=== PATIENT | male | born 1955 | race African-American/Black ===

== ENCOUNTER 2016-11-15 17:03 | Emergency (ER) | payer OTHER ==
[~2016-11-15] VITALS: Ht 172.7 cm; Wt 100.0 kg
[~2016-11-15 17:03] MED LIST: AMLO10TA55 PO; ASPI-556 PO; DOXA1TAB2 PO; FLUNISOLIDE NS; ISOS20TA9 PO; LISI40TA4 PO; LORA10TA47 PO; METO25TA6 PO; MONT10TA24 PO; NIAC500C3 PO; NITR0.4T10 SL; POTA8TAB4 PO; SIMV40TA5 PO; TRAM50TA4 PO
[2016-11-15] MEDS ORDERED: MAGOX PO (17:14)
[2016-11-15] MEDS ORDERED: CHLO25TA16 PO (17:14)
[2016-11-15] MEDS ORDERED: FLUN25H NASAL (17:41)
[2016-11-15] MEDS ORDERED: SIMV20 PO (17:41)
[2016-11-15] MEDS ORDERED: HYDROCODONE/ACETAMINOPHEN 5-325 MG TABLET PO ONE (17:45)
[2016-11-15] MEDS ORDERED: LIDOCAINE HCL BUFFERED 1% 20 ML VIAL INJ ONE (17:45)
[2016-11-15] MEDS ORDERED: LIDOCAINE HCL/PF 1% 2 ML VIAL IM ONE (17:45)
[2016-11-15] MEDS ORDERED: HydrOXYzine HCL 25 MG TABLET PO ONE (17:45)
[2016-11-15] MEDS ORDERED: CefTRIAXone SODIUM 1 GM/VIAL IM ONE (17:45)
[2016-11-15 18:31] VITALS: BP 134/85
== END 2016-11-15 18:58 | disposition home or self-care (01) ==
LOC: EMS 17:04
DX: L03.012 Cellulitis of left finger (principal); Z87.891 Personal history of nicotine dependence; I10 Essential (primary) hypertension; E78.00 Pure hypercholesterolemia, unspecified; Z88.0 Allergy status to penicillin; Z79.82 Long term (current) use of aspirin
CPT/HCPCS: 10160; 96372; 99284; J0696; J3490 ×2

== ENCOUNTER 2020-11-20 11:53 | Emergency (ER) | payer MEDICARE, OTHER ==
[~2020-11-20] VITALS: Ht 172.7 cm; Wt 120.9 kg
[~2020-11-20 11:53] MED LIST changes: +CHLO25TA3 PO; -FLUNISOLIDE NS; +FLUNNS NASAL; -LISI40TA4 PO; +LISI40TA9 PO; +LORA-550 PO; -LORA10TA47 PO; +MAGN400T7 PO; -MONT10TA24 PO; +MONT10TA32 PO; -NIAC500C3 PO; +SIMV-260 PO; -SIMV40TA5 PO
[2020-11-20] MEDS ORDERED: KETOROLAC TROMETHAMINE 30 MG/ML VIAL IM ONE (13:30)
[2020-11-20] MEDS ORDERED: AmLODIPine BESYLATE 5 MG TABLET PO ONE (13:30)
[2020-11-20] MEDS ORDERED: LISINOPRIL 10 MG TABLET PO ONE (13:30)
[2020-11-20 14:10] VITALS: BP 171/93
== END 2020-11-20 14:39 | disposition home or self-care (01) ==
LOC: EMS 11:59
DX: S46.911A Strain of unspecified muscle, fascia and tendon at shoulder and upper arm level, right arm, initial encounter (principal); I11.9 Hypertensive heart disease without heart failure; F17.210 Nicotine dependence, cigarettes, uncomplicated; E78.00 Pure hypercholesterolemia, unspecified; Z88.0 Allergy status to penicillin; Z79.899 Other long term (current) drug therapy; Z79.82 Long term (current) use of aspirin; X50.0XXA Overexertion from strenuous movement or load, initial encounter; Y93.89 Activity, other specified; Y92.89 Other specified places as the place of occurrence of the external cause; Y99.8 Other external cause status
CPT/HCPCS: 96372; 99283; J1885

== ENCOUNTER 2022-09-02 15:23 | Inpatient (IN) | payer OTHER ==
[~2022-09-02] VITALS: Ht 172.7 cm; Wt 108.0 kg
[~2022-09-02 15:23] MED LIST changes: +LORA-1370 PO; -LORA-550 PO; +MONT-40 PO; -MONT10TA32 PO; -POTA8TAB4 PO; +SLOWK8 PO
[2022-09-02] MEDS ORDERED: ACETAMINOPHEN 500 MG TABLET PO ONE (20:30)
[2022-09-02] MEDS ORDERED: IBUPROFEN 600 MG TABLET PO ONE (20:30)
[2022-09-02 20:44] LABS: BASOPHILS % (AUTO) 0.7 % (0.0-2.0); EOSINOPHILS % (AUTO) 1.4 % (1.0-6.0); HEMATOCRIT 43.4 % (41-53); LYMPHOCYTES # (AUTO) 1.2 K/uL (1.0-4.8); LYMPHOCYTES % (AUTO) 25.6 % (22.0-44.0); MEAN CORPUSCULAR HEMOGLOBIN 28.1 pg (26.0-34.0); MEAN CORPUSCULAR HGB CONC 32.2 G/dL (31.0-37.0); MEAN CORPUSCULAR VOLUME 87 fL (80-100); MONOCYTES # (AUTO) 0.4 K/uL (0.1-1.0); MONOCYTES % (AUTO) 9.7 % (2.0-9.0); NEUTROPHILS # (AUTO) 2.8 K/uL (1.8-7.7); NEUTROPHILS % (AUTO) 62.6 % (40.0-70.0); PLATELET COUNT (AUTO) 263 K/uL (150-450); RED BLOOD CELL COUNT(AUTO) 4.97 MIL/uL (4.50-5.90); RED CELL DISTRIBUTION WIDTH 15.1 % (11.5-14.5)
[2022-09-02 20:59] LABS: CALCIUM, TOTAL 8.9 mg/dL (8.8-10.5); CREATININE 2.5 mg/dL (0.60-1.30); POTASSIUM 3.7 mmol/L (3.5-5.1)
[2022-09-02 21:07] LABS: ALBUMIN 3.8 g/dL (3.4-5.0); BILIRUBIN,TOTAL 0.4 mg/dL (0.1-1.0); TOTAL PROTEIN, SERUM 7.9 g/dL (6.4-8.2)
[2022-09-02] MEDS ORDERED: ASPIRIN 325 MG TABLET PO ONE (21:30)
[2022-09-02] MEDS ORDERED: NITROGLYCERIN 2% (1 GM=INCH) OINTMENT PACKET TP ONE (21:30)
[2022-09-02 21:53] LABS: COVID AG,FIA SOURCE NASOPHARYNGEAL
[2022-09-02] MEDS ORDERED: SODIUM CHLORIDE 0.9% 1,000 ML IV ONE (22:15)
[2022-09-02] MEDS ORDERED: 0.9% SODIUM CHLORIDE 10 ML SYRINGE IVP PRN (22:15)
[2022-09-02] MEDS ORDERED: ONDANSETRON HCL 4 MG/2 ML VIAL IVP PRN (22:15)
[2022-09-02] MEDS ORDERED: ACETAMINOPHEN 325 MG TABLET PO PRN (22:15)
[2022-09-03 01:10] VITALS: BP 164/104
[2022-09-03] MEDS ORDERED: INFLUENZA VIRUS VACCINE QVS 2022-23 (6MO+)/PF 60 MCG/0.5 ML SYRINGE IM. ONE (03:45)
[2022-09-03 04:40] VITALS: BP 135/79
[2022-09-03 05:42] LABS: BASOPHILS % (AUTO) 0.8 % (0.0-2.0); EOSINOPHILS % (AUTO) 3.7 % (1.0-6.0); HEMATOCRIT 39.1 % (41-53); HEMOGLOBIN 12.8 g/dL (13.5-17.5); LYMPHOCYTES # (AUTO) 1.3 K/uL (1.0-4.8); LYMPHOCYTES % (AUTO) 35.3 % (22.0-44.0); MEAN CORPUSCULAR HEMOGLOBIN 28.3 pg (26.0-34.0); MEAN CORPUSCULAR HGB CONC 32.8 G/dL (31.0-37.0); MEAN CORPUSCULAR VOLUME 87 fL (80-100); MONOCYTES # (AUTO) 0.5 K/uL (0.1-1.0); MONOCYTES % (AUTO) 12.5 % (2.0-9.0); NEUTROPHILS # (AUTO) 1.7 K/uL (1.8-7.7); NEUTROPHILS % (AUTO) 47.7 % (40.0-70.0); PLATELET COUNT (AUTO) 235 K/uL (150-450); RED BLOOD CELL COUNT(AUTO) 4.52 MIL/uL (4.50-5.90); RED CELL DISTRIBUTION WIDTH 14.9 % (11.5-14.5)
[2022-09-03 05:54] LABS: ALBUMIN 3.3 g/dL (3.4-5.0); BILIRUBIN,TOTAL 0.3 mg/dL (0.1-1.0); CALCIUM, TOTAL 8.3 mg/dL (8.8-10.5); CREATININE 2.18 mg/dL (0.60-1.30); TOTAL PROTEIN, SERUM 6.9 g/dL (6.4-8.2)
[2022-09-03 07:27] VITALS: BP 162/93
[2022-09-03 11:30] VITALS: BP 166/108
[2022-09-03] MEDS ORDERED: MORPHINE SULFATE 2 MG/ML SYRINGE IVP PRN (12:15)
[2022-09-03] MEDS ORDERED: MAGNESIUM HYDROXIDE SUSPENSION 30 ML UDCUP PO PRN (12:15)
[2022-09-03] MEDS ORDERED: ONDANSETRON HCL 4 MG/2 ML VIAL IVP PRN (12:15)
[2022-09-03] MEDS ORDERED: SODIUM CHLORIDE 0.9% 500 ML IV ONE (12:15)
[2022-09-03] MEDS ORDERED: BISACODYL 10 MG RECTAL RECTAL SUPPOSITORY PR PRN (12:15)
[2022-09-03] MEDS ORDERED: HYDROCODONE/ACETAMINOPHEN 5-325 MG TABLET PO PRN (12:15)
[2022-09-03] MEDS ORDERED: ACETAMINOPHEN 325 MG TABLET PO PRN (12:15)
[2022-09-03] MEDS ORDERED: ZOLPIDEM TARTRATE 5 MG TABLET PO PRN (12:15)
[2022-09-03] MEDS ORDERED: ISOSM20 PO (12:26)
[2022-09-03] MEDS: AmLODIPine BESYLATE 10 MG TABLET PO SCH (14:56)
[2022-09-03 16:40] VITALS: BP 162/100
[2022-09-03] MEDS: HEPARIN SODIUM,PORCINE 5,000 UNITS/ML VIAL SQ SCH ×2 (17:49→23:50)
[2022-09-03] MEDS: DOCUSATE SODIUM 100 MG CAPSULE PO SCH (20:55)
[2022-09-03] MEDS: METOPROLOL TARTRATE 25 MG TABLET PO SCH (20:55)
[2022-09-03] MEDS ORDERED: SIMVASTATIN 20 MG TABLET PO SCH (21:00)
[2022-09-03] MEDS ORDERED: AmLODIPine BESYLATE 10 MG TABLET PO SCH (21:00)
[2022-09-03 23:48] VITALS: BP 152/97
[2022-09-04 04:26] VITALS: BP 141/81
[2022-09-04 06:51] LABS: BASOPHILS % (AUTO) 0.8 % (0.0-2.0); EOSINOPHILS % (AUTO) 1.8 % (1.0-6.0); HEMATOCRIT 41.6 % (41-53); HEMOGLOBIN 13.6 g/dL (13.5-17.5); LYMPHOCYTES # (AUTO) 1.2 K/uL (1.0-4.8); LYMPHOCYTES % (AUTO) 20.4 % (22.0-44.0); MEAN CORPUSCULAR HEMOGLOBIN 28.4 pg (26.0-34.0); MEAN CORPUSCULAR HGB CONC 32.6 G/dL (31.0-37.0); MEAN CORPUSCULAR VOLUME 87 fL (80-100); MONOCYTES # (AUTO) 0.7 K/uL (0.1-1.0); MONOCYTES % (AUTO) 11.2 % (2.0-9.0); NEUTROPHILS # (AUTO) 3.9 K/uL (1.8-7.7); NEUTROPHILS % (AUTO) 65.8 % (40.0-70.0); PLATELET COUNT (AUTO) 242 K/uL (150-450); RED BLOOD CELL COUNT(AUTO) 4.78 MIL/uL (4.50-5.90); RED CELL DISTRIBUTION WIDTH 15.1 % (11.5-14.5)
[2022-09-04 07:05] LABS: CALCIUM, TOTAL 8.7 mg/dL (8.8-10.5); CREATININE 1.86 mg/dL (0.60-1.30); POTASSIUM 3.4 mmol/L (3.5-5.1)
[2022-09-04 08:00] VITALS: BP 147/82
[2022-09-04] MEDS ORDERED: PANTOPRAZOLE SODIUM 40 MG DR TABLET PO SCH (09:00)
[2022-09-04] MEDS ORDERED: MONTELUKAST SODIUM 10 MG TABLET PO SCH (09:00)
[2022-09-04] MEDS ORDERED: ISOSORBIDE MONONITRATE 20 MG TABLET PO SCH (09:00)
[2022-09-04] MEDS ORDERED: ASPIRIN 81 MG DR TABLET PO SCH (09:00)
[2022-09-04] MEDS: METOPROLOL TARTRATE 25 MG TABLET PO SCH (09:04)
[2022-09-04] MEDS: DOCUSATE SODIUM 100 MG CAPSULE PO SCH (09:04)
[2022-09-04] MEDS: AmLODIPine BESYLATE 10 MG TABLET PO SCH (09:04)
[2022-09-04] MEDS: HEPARIN SODIUM,PORCINE 5,000 UNITS/ML VIAL SQ SCH (09:05)
[2022-09-04] MEDS ORDERED: AMLO-258 PO (10:50)
[2022-09-04] MEDS ORDERED: ISOSM20 PO (10:50)
[2022-09-04] MEDS ORDERED: SIMV-43 PO (10:50)
[2022-09-04] MEDS ORDERED: MONT-35 PO (10:50)
[2022-09-04] MEDS ORDERED: ASPI-1444 PO (10:50)
[2022-09-04] MEDS ORDERED: METO25 PO (10:50)
[2022-09-04] MEDS ORDERED: LISI40TA9 PO (10:50)
== END 2022-09-04 12:00 | disposition home or self-care (01) | DRG 683 ==
LOC: EMS 15:25 → 5S 09-03 00:05
PROVIDERS: ADMIT Hospitalist; ATTEND Hospitalist
DX: N17.9 Acute kidney failure, unspecified (principal); I43 Cardiomyopathy in diseases classified elsewhere; E87.6 Hypokalemia; N18.9 Chronic kidney disease, unspecified; D64.9 Anemia, unspecified; E78.5 Hyperlipidemia, unspecified; Z20.822 Contact with and (suspected) exposure to COVID-19; E78.00 Pure hypercholesterolemia, unspecified; F17.200 Nicotine dependence, unspecified, uncomplicated; I13.10 Hypertensive heart and chronic kidney disease without heart failure, with stage 1 through stage 4 chronic kidney disease, or unspecified chronic kidney disease; Z88.0 Allergy status to penicillin; Z91.14 Patient's other noncompliance with medication regimen; Z79.899 Other long term (current) drug therapy
CPT/HCPCS: 71045; 76770; 80048; 80053; 84484; 85025; 93005; 93306; 99285; J1644; J7030; J7040; 36415-L1; 36415-TC

== ENCOUNTER 2024-09-16 13:16 | Inpatient (IN) | payer OTHER ==
[~2024-09-16] VITALS: Ht 172.7 cm; Wt 104.7 kg
[~2024-09-16 13:16] MED LIST changes: +AMLO-258 PO; -AMLO10TA55 PO; +ASPI-1444 PO; -ASPI-556 PO; -CHLO25TA3 PO; -DOXA1TAB2 PO; -FLUNNS NASAL; +ISOS-58 PO; -ISOS20TA9 PO; -LORA-1370 PO; -MAGN400T7 PO; +METO25 PO; -METO25TA6 PO; +MONT-35 PO; -MONT-40 PO; -NITR0.4T10 SL; -SIMV-260 PO; +SIMV-43 PO; -SLOWK8 PO; -TRAM50TA4 PO
[2024-09-16 13:48] LABS: BASOPHILS % (AUTO) 0.5 % (0.0-2.0); EOSINOPHILS % (AUTO) 1.5 % (1.0-6.0); HEMATOCRIT 32.1 % (41-53); HEMOGLOBIN 10.2 g/dL (13.5-17.5); LYMPHOCYTES # (AUTO) 0.7 K/uL (1.0-4.8); LYMPHOCYTES % (AUTO) 9.3 % (22.0-44.0); MEAN CORPUSCULAR HEMOGLOBIN 27.7 pg (26.0-34.0); MEAN CORPUSCULAR HGB CONC 31.8 G/dL (31.0-37.0); MEAN CORPUSCULAR VOLUME 87 fL (80-100); MONOCYTES # (AUTO) 0.8 K/uL (0.1-1.0); MONOCYTES % (AUTO) 10.2 % (2.0-9.0); NEUTROPHILS # (AUTO) 6.1 K/uL (1.8-7.7); NEUTROPHILS % (AUTO) 78.5 % (40.0-70.0); PLATELET COUNT (AUTO) 316 K/uL (150-450); RED BLOOD CELL COUNT(AUTO) 3.68 MIL/uL (4.50-5.90); RED CELL DISTRIBUTION WIDTH 14.5 % (11.5-14.5); WHITE BLOOD COUNT (AUTO) 7.8 K/uL (4.5-11.0)
[2024-09-16 13:58] LABS: CALCIUM, TOTAL 8.3 mg/dL (8.8-10.5); CREATININE 2.98 mg/dL (0.60-1.30); POTASSIUM 3.3 mmol/L (3.5-5.1)
[2024-09-16 14:08] LABS: TROPONIN I-HIGH SENSITIVITY 195 ng/L (<76)
[2024-09-16 14:48] LABS: ALBUMIN 2.7 g/dL (3.4-5.0); BILIRUBIN,DIRECT 0.2 mg/dL (0.00-0.20); BILIRUBIN,TOTAL 0.5 mg/dL (0.1-1.0); TOTAL PROTEIN, SERUM 7.1 g/dL (6.4-8.2)
[2024-09-16] MEDS: FUROSEMIDE 20 MG/2 ML VIAL IVP ONE (16:12)
[2024-09-16 17:44] LABS: TROPONIN I-HIGH SENSITIVITY 136 ng/L (<76)
[2024-09-16] MEDS: LEVOFLOXACIN 750 MG/D5% WATER 150 ML IV ONE (17:44)
[2024-09-16] MEDS: POTASSIUM CHLORIDE 20 MEQ ER TABLET PO ONE (19:12)
[2024-09-16] MEDS: METOPROLOL TARTRATE 25 MG TABLET PO SCH (21:54)
[2024-09-16] MEDS: FUROSEMIDE 20 MG/2 ML VIAL IVP SCH (21:54)
[2024-09-16 21:59] VITALS: BP 147/100; PULSE 100; RESP 18; TEMP 99.8; O2SAT 95
[2024-09-16] MEDS ORDERED: MAGNESIUM HYDROXIDE SUSPENSION 30 ML UDCUP PO PRN (22:45)
[2024-09-16] MEDS ORDERED: HYDROCODONE/ACETAMINOPHEN 5-325 MG TABLET PO PRN (22:45)
[2024-09-16] MEDS ORDERED: ALBUTEROL SULFATE 2.5 MG/0.5 ML NEB SOLUTION NEB PRN (22:45)
[2024-09-16] MEDS ORDERED: ONDANSETRON HCL 4 MG/2 ML VIAL IVP PRN (22:45)
[2024-09-16] MEDS ORDERED: BISACODYL 10 MG RECTAL RECTAL SUPPOSITORY PR PRN (22:45)
[2024-09-16] MEDS ORDERED: ACETAMINOPHEN 325 MG TABLET PO PRN (22:45)
[2024-09-16] MEDS ORDERED: MORPHINE SULFATE 2 MG/ML SYRINGE IVP PRN (22:45)
[2024-09-16] MEDS ORDERED: IPRATROPIUM BROMIDE 0.5 MG/2.5 ML NEB SOLUTION NEB PRN (22:45)
[2024-09-16] MEDS: HEPARIN SODIUM,PORCINE 5,000 UNITS/ML VIAL SQ SCH (23:25)
[2024-09-17] VITALS (8 sets, daily range): BP systolic 128–144; BP diastolic 69–104; PULSE 79–92; RESP 17–24; TEMP 97.9–98.9; O2SAT 93–98
[2024-09-17 00:57] LABS: APPEARANCE,URINE CLEAR (CLEAR); BILIRUBIN,URINE NEGATIVE (NEGATIVE); COLOR,URINE COLORLESS (YELLOW); GLUCOSE, URINE (UA) NEGATIVE (NEGATIVE); KETONES,URINE NEGATIVE (NEGATIVE); LEUKOCYTE ESTERASE ,URINE NEGATIVE (NEGATIVE); NITRATE,URINE NEGATIVE (NEGATIVE); OCCULT BLOOD,URINE NEGATIVE (NEGATIVE); PROTEIN,URINE TRACE mg/dL (NEGATIVE); UROBILINOGEN,URINE <=1.0 mg/dL (<=1.0)
[2024-09-17 01:04] LABS: AMPHET/METH SCREEN,URINE POSITIVE (NEGATIVE); BARBITURATE SCREEN, URINE NEGATIVE (NEGATIVE); BENZODIAZEPINES SCREEN,URINE NEGATIVE (NEGATIVE); CANNABINOID SCREEN,URINE NEGATIVE (NEGATIVE); COCAINE SCREEN,URINE NEGATIVE (NEGATIVE); METHADONE SCREEN, URINE NEGATIVE (NEGATIVE); OPIATE SCREEN,URINE NEGATIVE (NEGATIVE); PHENCYCLIDINE SCREEN,URINE NEGATIVE (NEGATIVE)
[2024-09-17 01:09] LABS: ALCOHOL, URINE DRUG SCREEN NEGATIVE (NEGATIVE)
[2024-09-17 07:10] LABS: BASOPHILS % (AUTO) 0.2 % (0.0-2.0); EOSINOPHILS % (AUTO) 0.2 % (1.0-6.0); HEMATOCRIT 29.9 % (41-53); HEMOGLOBIN 9.8 g/dL (13.5-17.5); LYMPHOCYTES # (AUTO) 0.6 K/uL (1.0-4.8); LYMPHOCYTES % (AUTO) 7.1 % (22.0-44.0); MEAN CORPUSCULAR HEMOGLOBIN 28.2 pg (26.0-34.0); MEAN CORPUSCULAR HGB CONC 32.7 G/dL (31.0-37.0); MEAN CORPUSCULAR VOLUME 86 fL (80-100); MONOCYTES # (AUTO) 0.7 K/uL (0.1-1.0); MONOCYTES % (AUTO) 8.9 % (2.0-9.0); NEUTROPHILS % (AUTO) 83.6 % (40.0-70.0); PLATELET COUNT (AUTO) 330 K/uL (150-450); RED BLOOD CELL COUNT(AUTO) 3.46 MIL/uL (4.50-5.90); RED CELL DISTRIBUTION WIDTH 14.2 % (11.5-14.5); WHITE BLOOD COUNT (AUTO) 8.3 K/uL (4.5-11.0)
[2024-09-17 07:42] LABS: CALCIUM, TOTAL 8.3 mg/dL (8.8-10.5); CREATININE 2.98 mg/dL (0.60-1.30); POTASSIUM 3.9 mmol/L (3.5-5.1)
[2024-09-17 08:00] LABS: TROPONIN I-HIGH SENSITIVITY 179 ng/L (<76)
[2024-09-17] MEDS: PANTOPRAZOLE SODIUM 40 MG DR TABLET PO SCH (09:04)
[2024-09-17] MEDS: ATORVASTATIN CALCIUM 20 MG TABLET PO SCH (09:05)
[2024-09-17] MEDS: ASPIRIN 81 MG DR TABLET PO SCH (09:06)
[2024-09-17] MEDS ORDERED: ALBUTEROL SULFATE 2.5 MG/0.5 ML NEB SOLUTION NEB PRN (13:00)
[2024-09-17] MEDS ORDERED: IPRATROPIUM BROMIDE 0.5 MG/2.5 ML NEB SOLUTION NEB PRN (13:00)
[2024-09-17] MEDS: BENZONATATE 100 MG CAPSULE PO SCH (16:15)
[2024-09-17] MEDS: LEVOFLOXACIN 750 MG/D5% WATER 150 ML IV SCH (16:15)
[2024-09-17] MEDS: ALBUTEROL SULFATE 2.5 MG/0.5 ML NEB SOLUTION NEB SCH (19:31)
[2024-09-17] MEDS: IPRATROPIUM BROMIDE 0.5 MG/2.5 ML NEB SOLUTION NEB SCH (19:31)
[2024-09-17] MEDS: MethylPREDNISolone SOD SUCC 125 MG/2 ML VIAL IVP SCH (20:33)
[2024-09-17] MEDS: FUROSEMIDE 20 MG/2 ML VIAL IVP SCH (20:33)
[2024-09-17] MEDS: GuaiFENesin SR 600 MG ER TABLET PO SCH (20:34)
[2024-09-17 21:58] LABS: COVID AG,FIA SOURCE NASAL SWAB
[2024-09-17 22:17] LABS: SARS-COV2 (COVID) ANTIGEN,FIA Negative (Negative)
[2024-09-17 22:18] LABS: INFLUENZA TYPE A NEGATIVE FOR TYPE A (NEGATIVE); INFLUENZA TYPE B NEGATIVE FOR TYPE B (NEGATIVE)
[2024-09-18] VITALS (14 sets, daily range): BP systolic 142–150; BP diastolic 89–109; PULSE 82–100; RESP 19–24; TEMP 97.8–98.3; O2SAT 92–100
[2024-09-18] MEDS: ZOLPIDEM TARTRATE 5 MG TABLET PO PRN (01:17)
[2024-09-18 07:47] LABS: BASOPHILS % (AUTO) 0.1 % (0.0-2.0); EOSINOPHILS % (AUTO) 0 % (1.0-6.0); HEMATOCRIT 31.1 % (41-53); HEMOGLOBIN 10.2 g/dL (13.5-17.5); LYMPHOCYTES # (AUTO) 0.4 K/uL (1.0-4.8); LYMPHOCYTES % (AUTO) 9.4 % (22.0-44.0); MEAN CORPUSCULAR HEMOGLOBIN 28.3 pg (26.0-34.0); MEAN CORPUSCULAR HGB CONC 32.8 G/dL (31.0-37.0); MEAN CORPUSCULAR VOLUME 86 fL (80-100); MONOCYTES # (AUTO) 0.1 K/uL (0.1-1.0); MONOCYTES % (AUTO) 1.3 % (2.0-9.0); PLATELET COUNT (AUTO) 332 K/uL (150-450); RED CELL DISTRIBUTION WIDTH 14.3 % (11.5-14.5); WHITE BLOOD COUNT (AUTO) 4.4 K/uL (4.5-11.0)
[2024-09-18 07:48] LABS: NEUTROPHILS % (AUTO) 89.2 % (40.0-70.0)
[2024-09-18] MEDS: METOPROLOL SUCCINATE 25 MG ER TABLET PO SCH (08:43)
[2024-09-18 09:31] LABS: CALCIUM, TOTAL 8.3 mg/dL (8.8-10.5); CREATININE 2.85 mg/dL (0.60-1.30); POTASSIUM 3.7 mmol/L (3.5-5.1)
[2024-09-18] MEDS ORDERED: SODIUM CHLORIDE 0.9% 500 ML IV ONE (17:30)
[2024-09-19] VITALS (8 sets, daily range): BP systolic 143–152; BP diastolic 100–118; PULSE 76–94; RESP 18–23; TEMP 97.5–98.3; O2SAT 90–97
[2024-09-19] MEDS: LOSARTAN POTASSIUM 25 MG TABLET PO SCH (09:15)
[2024-09-19] MEDS: METOPROLOL SUCCINATE 25 MG ER TABLET PO SCH (09:15)
[2024-09-19 18:51] LABS: APPEARANCE,URINE CLEAR (CLEAR); BILIRUBIN,URINE NEGATIVE (NEGATIVE); COLOR,URINE LIGHT YELLOW (YELLOW); GLUCOSE, URINE (UA) NEGATIVE (NEGATIVE); KETONES,URINE NEGATIVE (NEGATIVE); LEUKOCYTE ESTERASE ,URINE NEGATIVE (NEGATIVE); NITRATE,URINE NEGATIVE (NEGATIVE); OCCULT BLOOD,URINE NEGATIVE (NEGATIVE); PROTEIN,URINE TRACE mg/dL (NEGATIVE); SPECIFIC GRAVITIY, URINE 1.014 (1.003-1.030); UROBILINOGEN,URINE <=1.0 mg/dL (<=1.0)
[2024-09-19 18:56] LABS: CREATININE,URINE RANDOM 79.6 mg/dL (30.0-125.0); PROTEIN,URINE RANDOM 25 mg/dL (0-11.9); SODIUM,URINE RANDOM 23 mmol/l (20-110); UREA NITROGEN,URINE RANDOM 691 mg/dL (350-1000)
[2024-09-20] VITALS (8 sets, daily range): BP systolic 139–163; BP diastolic 86–112; PULSE 77–91; RESP 18–22; TEMP 97.7–98.1; O2SAT 82–99
[2024-09-20 10:33] LABS: CALCIUM, TOTAL 8.4 mg/dL (8.8-10.5); CREATININE 3.6 mg/dL (0.60-1.30); MAGNESIUM 2.5 mg/dL (1.80-2.40); PHOSPHORUS 5.8 mg/dL (2.5-4.9); POTASSIUM 4.1 mmol/L (3.5-5.1)
[2024-09-20] MEDS ORDERED: BUMETANIDE 0.25 MG/ML 4 ML VIAL IVP SCH (21:00)
[2024-09-21] MEDS ORDERED: FUROSEMIDE 20 MG/2 ML VIAL IVP SCH (09:00)
== END 2024-09-20 15:35 | disposition left against medical advice (07) | DRG 291 ==
LOC: EMS 13:16 → EDH 17:57 → 5S 21:24
PROVIDERS: ADMIT Hospitalist; ATTEND Hospitalist
DX: I13.0 Hypertensive heart and chronic kidney disease with heart failure and stage 1 through stage 4 chronic kidney disease, or unspecified chronic kidney disease (principal); I50.23 Acute on chronic systolic (congestive) heart failure; J18.9 Pneumonia, unspecified organism; J44.0 Chronic obstructive pulmonary disease with (acute) lower respiratory infection; N17.9 Acute kidney failure, unspecified; J45.901 Unspecified asthma with (acute) exacerbation; N18.4 Chronic kidney disease, stage 4 (severe); I42.9 Cardiomyopathy, unspecified; I71.43 Infrarenal abdominal aortic aneurysm, without rupture; K57.30 Diverticulosis of large intestine without perforation or abscess without bleeding; Z53.29 Procedure and treatment not carried out because of patient's decision for other reasons; D64.9 Anemia, unspecified; G47.33 Obstructive sleep apnea (adult) (pediatric); F15.10 Other stimulant abuse, uncomplicated; K59.00 Constipation, unspecified; Z20.822 Contact with and (suspected) exposure to COVID-19; I08.1 Rheumatic disorders of both mitral and tricuspid valves; J43.9 Emphysema, unspecified; I25.10 Atherosclerotic heart disease of native coronary artery without angina pectoris; E78.00 Pure hypercholesterolemia, unspecified; Z82.49 Family history of ischemic heart disease and other diseases of the circulatory system; Z87.891 Personal history of nicotine dependence; Z88.0 Allergy status to penicillin; Z79.82 Long term (current) use of aspirin; Z79.899 Other long term (current) drug therapy
CPT/HCPCS: 71045; 74176; 80048; 80076; 80307; 81003; 82570; 83690; 83735; 83880; 84100; 84156; 84300; 84484; 84540; 85025; 85730; 87040; 87081; 87804; 93005; 93306; 94640; 99285; J1644; J1940; J1956; J2919; J3490; J7040; 36415-L1; 36415-TC; J7613